=== PATIENT | male | born 1950 | race Caucasian/White ===

== ENCOUNTER 2017-01-22 09:46 | Outpatient (CLI) | payer MEDICARE, OTHER ==
[~2017-01-22] VITALS: Ht 182.9 cm; Wt 100.0 kg
--- NOTE | ~2017-01-22 | HEMODYNAMI ---
PATIENT:MARY MENDES MEDICAL RECORD: [id number] : 48 LOCATION:[facility] ADMISSION DATE: 01/22/17 Generatedon:01/22/201712:42 Patient name: MARY MENDES Patient #: [id number] N: [id number] : 1950 Date of study: 01/22/2017 Page: Of Hemodynamic Procedure Report Patient Data Patient Demographics Procedure consent was obtained First Name: MARY Gender: Male Last Name: CINTHYA : 1950 [facility] Initial: R Age: 66 year(s) Patient #: [id number] Race: SSN: [id number] Additional ID: [id number] Contact details Address: [address] [place] [address] State: [place] City: [facility] Zip code: [address] Past Medical History History of disease Date Diagnosis Comments CAD Allergies Allergen Reaction Date Comments Reported Other allergy 01/22/2017 [facility] Admission Admission Data Admission Date: 01/22/2017 Admission Time: 9:46 Arrival Date: 01/22/2017 Arrival Time: 0:00 Admit Source: Other Insurance Payor: Private health insurance, Medicare Height (in.): 72 BSA: 2.26 (m2) Height (cm.): 182.88 BMI: 31.19 (kg/m2) Weight (lbs.): 230 Weight (kg.): 104.33 Lab Results Lab Result Date: 01/22/2017 Lab Result Time: 0:00 Biochemistry Name Units Result Min Max BUN mg/dl 13 --(--*-)-- 7 18 Creatinine mg/dl 1.1 --(--*-)-- 0.6 1.3 CBC Name Units Result Min Max Hemoglobin g/dl 15.9 --(--*-)-- 13.5 17.5 Procedure Procedure Types Cath Procedure Diagnostic Procedure LHC LH w/Coronaries PCI Procedure Coronary Stent Initial PTCA Additional Miscellaneous Procedures Moderate Sedation up to 30 minutes Procedure Description Procedure Date Procedure Date: 01/22/2017 Procedure Start Time: 12:16 Procedure End Time: 12:40 Procedure Staff Name Function Carroll Thomas MD Performing Physician Tosin Velazquez RT Scrub Lynette Carrillo RN Nurse Janine Prieto RT Monitor Procedure Data Cath Procedure Fluoroscopy Diagnostic fluoroscopy Total fluoroscopy Time: 7.8 time: 7.8 min min Diagnostic fluoroscopy Total fluoroscopy dose: dose: 1449 mGy 1449 mGy Contrast Material Contrast Material Type Amount (ml) Isovue 300 144 Entry Location Entry Primary Successful Side Size Upsize Upsize Entry Closure Succes sful Closure Location (Fr) 1 (Fr) 2 (Fr) Remarks Device Remarks Femoral Right 5 Fr 6 Fr Exoseal artery Short Estimated blood loss: 5 ml Diagnostic catheters Device Type Used For End Catheter Placement Cordis 5Fr Pigtail LV Angiography Catheter (MP) Cordis 5Fr JL 4.0 Left Coronary Catheter (MP) Angiography Cordis 5Fr 3DRC Catheter Right Coronary (MP) Angiography Procedure Complications No complications Procedure Medications Medication Administration Route Dosage Oxygen NC 2 l/min Lidocaine 2% added to field 20 Heparin Flush Bag added to field 2 bags (1000units/500ml NS) 0.9% NaCl I.V. 100 ml/hr Versed I.V. 1 mg Fentanyl I.V. 50 mcg Versed I.V. 1 mg Fentanyl I.V. 50 mcg Heparin Bolus I.V. 4000 units Fentanyl I.V. 50 mcg Fentanyl I.V. 50 mcg Hemodynamics Rest BSA: 2.26 (m2) HGB: 15.9 (g/dl) O2 Consumption: Estimated: 264.44 (ml/min) O2 Co nsumption indexed: Estimated:117.01 (ml/min/m) Heart Rate: 72 (bpm) Pressure Samples Time Site Value (mmHg) Purpose Heart Use Rate(bpm) 12:18 LV 111/27,47 Snapshot 73 Snapshots Pre Cath Intra NCS Post Cath Vital Signs Time Heart Resp SPO2 NIBP (mmHg) Rhythm Pain Sedation Rate (ipm) (%) Status Level (bpm) 12:01:00 69 14 94 138/88(106) NSR 0 (11) 10(A) , No pain 12:05:12 69 15 96 131/84(105) NSR 0 (11) 10(A) , No pain 12:09:24 70 15 96 134/75(102) NSR 0 (11) 10(A) , No pain 12:13:38 69 16 97 129/78(103) NSR 0 (11) 10(A) , No pain 12:17:48 71 16 96 129/77(104) NSR 0 (11) 9(A) , No pain 12:21:58 69 17 95 132/79(109) NSR 0 (11) 9(A) , No pain 12:26:12 73 16 95 129/74(106) NSR 0 (11) 9(A) , No pain 12:30:24 76 16 96 124/78(102) NSR 0 (11) 9(A) , No pain 12:34:30 78 16 96 130/88(107) NSR 0 (11) 9(A) , No pain 12:38:40 76 17 96 140/80(115) NSR 0 (11) 10(A) , No pain Medications Time Medication Route Dose Verified Delivered Reason Notes Effectiveness by by 12:02:46 Oxygen NC 2 Carroll Buffie used for l/min Martha Carrillo RN procedure 12:15:52 Lidocaine 2% added 20ml Carroll Carroll for local to vial Martha Thomas MD anesthetic field 12:15:58 Heparin Flush added 2 Carroll Carroll used for Bag to bags Martha Thomas MD procedure (1000units/500ml field NS) 12:16:09 0.9% NaCl I.V. 100 Carroll Buffie Per physician ml/hr Martha Carrillo RN 12:16:16 Versed I.V. 1 mg Carroll Buffie for sedation Martha Carrillo RN 12:16:22 Fentanyl I.V. 50 Carroll Buffie for sedation mcg Martha Carrillo RN 12:19:49 Versed I.V. 1 mg Carroll Buffie for sedation Martha Carrillo RN 12:19:53 Fentanyl I.V. 50 Carroll Buffie for sedation mcg Martha Carrillo RN 12:23:22 Heparin Bolus I.V. 4000 Carroll Buffie for verifi ed units Martha Carrillo RN anticoagulation with dr thomas 12:25:29 Fentanyl I.V. 50 Carroll Buffie for sedation mcg Martha Carrillo RN 12:30:15 Fentanyl I.V. 50 Carroll Buffie for sedation mcg Tauth MD Carrillo wholesaler Log Time Note 11:46:38 Arrival Date: 01/22/2017 12:00:00 AM 11:46:39 Admit Source: Other 11:46:46 Patient Height : 182.88 cm 11:46:58 Patient Weight : 104.33 kg 11:46:58 Insurance Payor : Private health insurance, Medicare 11:47:56 ACC Patient presents with Symptoms unlikely to be ischemic CCS Anginal Class 2--Slight limitation of ordinary activity. 11:48:00 Diagnostic Cath status Elective 11:48:02 Janine Prieto RT(R) sent for patient. Start room use. 11:48:03 Time tracking: Regular hours 11:48:09 Plan of Care:Hemodynamics will remain stable., Cardiac rhythm will remain stable., Comfort level will be maintained., Respiratory function will remain adequate., Patient/ family verbilizes understanding of procedure., Procedure tolerated without complication., Recovers from procedure without complications.. 11:48:18 Patient received from Pre/Post Procedure Room to CCL 2 Alert and oriented. Tansferred to table in Supine position. 11:48:20 Warm blankets applied, and luca hugger turned on for patient comfort. 11:48:22 Correct patient and procedure confirmed by team. 11:48:23 Signed procedure consent form obtained from patient. 11:48:37 H&P Date Dictated: 01/20/2017 Within 30 days and on chart., H&P Addendum completed by physician on day of procedure. (MUST COMPLETE FOR ALL OUTPATIENTS). 11:48:40 Pre-procedure instructions explained to patient. 11:48:44 Family in waiting room. 11:48:48 Patient NPO since Midnight. 11:49:13 Patient allergic to Other allergySimvastatin 11:49:16 Is the patient allergic to Iodine/contrast media? No. 11:49:25 Is patient on blood thinner?Yes 11:49:29 ACC The patient was administered the following blood thiners within the last 24 hours: ACCPlavix 11:50:09 Snore? Yes 11:50:13 Patient diabetic? No. 11:50:27 Patient pain scale 0/10 ?. 11:50:36 IV patent on arrival in left hand with 0.9% NaCl at O. 11:51:13 Right Radial & Right Groin area was prepped with chlora-prep and draped in sterile fashion 11:51:15 Alarms reviewed by Ayesha Wynn 11:51:16 Physician paged 11:59:56 ECG and BP/O2 sat monitors applied to patient. 11:59:57 Baseline sample Acquired. 11:59:57 Vital chart was started 12:00:01 Rhythm: sinus rhythm 12:00:02 Full Disclosure recording started 12:00:05 Pre-op teaching completed and patient verbalized understanding. 12:00:10 Was the patient premedicated? No 12:00:19 Previous problem with sedation/anesthesia? No ? 12:00:22 Sleep apnea? No 12:00:25 Deviated septum? No 12:00:26 Opens mouth fully? Yes 12:00:27 Sticks out tongue? Yes 12:00:29 Airway obstruction? No ? 12:00:33 Dentures? No ? 12:00:36 Pre procedure: right dorsailis pedis pulse 1+ Palpable, but thready & weak; easily obliterated 12:00:39 Patient pain scale 0/10 ?. 12:02:46 Oxygen 2 l/min NC was administered by Lynette Carrillo RN; used for procedure; 12:04:23 Lab Result : Creatinine 1.1 mg/dl 12:04:23 Lab Result : BUN 13 mg/dl 12:04:23 Lab Result : Hemoglobin 15.9 g/dl 12:04:29 Lab results completed and on chart. 12:06:16 Use device set Femoral Dx 12:06:17 Acist Syringe opened to sterile field. 12:06:18 Bag Decanter opened to sterile field. 12:06:18 Medline Cath Pack opened to sterile field. 12:06:18 Terumo 5Fr Flushing Sheath opened to sterile field. 12:06:19 St Turner 260cm J .035 wire opened to sterile field. 12:06:21 Acist Hand Control opened to sterile field. 12:06:21 Acist Manifold opened to sterile field. 12:06:22 Diagnostic Infinity 5Fr Multipack catheter opened to sterile field. 12:06:22 Tegaderm 4 x 4 opened to sterile field. 12:15:35 Physician arrived 12:15:36 --------ALL STOP TIME OUT------ 12:15:36 Final Timeout: patient, procedure, and site verified with staff and physician. All members of the team are in agreement. 12:15:38 Right groin site verified by team. 12:15:40 Physical assessment completed. ASA score P 2 - A patient with mild systemic disease as per Carroll Thomas MD. 12:15:44 Sedation plan: IV Moderate Sedation Versed, Fentanyl 12:15:52 Lidocaine 2% 20ml vial added to field was administered by Carroll Thomas MD; for local anesthetic; 12:15:58 Heparin Flush Bag (1000units/500ml NS) 2 bags added to field was administered by Carroll Thomas MD; used for procedure; 12:16:09 0.9% NaCl 100 ml/hr I.V. was administered by Lynette Carrillo RN; Per physician; 12:16:16 Versed 1 mg I.V. was administered by Lynette Carrillo RN; for sedation; 12:16:22 Fentanyl 50 mcg I.V. was administered by Lynette Carrillo RN; for sedation; 12:16:49 Procedure started. 12:16:51 Local anesthetic to right femoral artery with Lidocaine 2% by Carroll Thomas MD.INITIAL ACCESS ONLY 12:16:58 A 5 Fr sheath was inserted into the Right Femoral artery 12:17:01 Zero performed for pressure channel P1 12:17:17 A Cordis 5Fr Pigtail Catheter (MP) was advanced over the wire and used for LV Angiography. 12:18:26 LV hemodynamics recorded. 12:18:27 LV gram done using EMERY 12:18:30 Injector settings: Ml/sec: 5, Volume: 15, 12:18:36 EF : 50 % 12:18:41 Catheter removed. 12:18:45 A Cordis 5Fr JL 4.0 Catheter (MP) was advanced over the wire and used for Left Coronary Angiography. 12:19:31 LCA angiography performed. 12:19:34 Injector settings: Ml/sec: 3, Volume: 6, 12:19:49 Versed 1 mg I.V. was administered by Lynette Carrillo RN; for sedation; 12:19:53 Fentanyl 50 mcg I.V. was administered by Lynette Carrillo RN; for sedation; 12:19:57 Ramirez Whisper J 300cm 0.014 guide wire opened to sterile field. 12:19:57 Merit BasixCompak Inflation Kit opened to sterile field. 12:20:00 Terumo 6Fr Flushing Sheath opened to sterile field. 12:20:10 Catheter removed. 12:20:16 A Cordis 5Fr 3DRC Catheter (MP) was advanced over the wire and used for Right Coronary Angiography. 12:21:53 RCA angiography performed. 12::56 Injector settings: Ml/sec: 3, Volume: 6, 12:22:02 Catheter removed. 12:22:09 Medtronic Launcher 6Fr HS I guide catheter opened to sterile field. 12:22:13 Proceeding to intervention. 12:: Sheath upsized to a 6 Fr Short. 12::35 6 Fr hs 1 guide catheter was inserted over the wire 12:: whisper wire advanced. 12:: Heparin Bolus 4000 units I.V. was administered by Lynette Carrillo RN; for anticoagulation; verified with dr thomas 12:25: Wire advanced across lesion. 12:25:26 Inflation number: 1 A [place] Sci Teller 3.0 X 20 balloon was prepped and advanced across the Mid RCA, then inflated to 17 SHEILA for 0:10 (min:sec). 12:25:29 Fentanyl 50 mcg I.V. was administered by Lynette Carrillo RN; for sedation; 12:: Inflation number: 2 The [place] Sci Teller 3.0 X 20 balloon was reinflated across the Mid RCA, to 17 SHEILA for 0:10 (min:sec). 12::49 Balloon removed over the wire. 12:: Inflation number: 3 The [place] Sci Teller 3.0 X 20 balloon was reinflated across the Mid RCA, to 21 SHEILA for 0:10 (min:sec). 12:27:31 choice pt wire advanced 12:28:36 Balloon removed over the wire. 12:30:15 Fentanyl 50 mcg I.V. was administered by Lynette Carrillo RN; for sedation; 12::49 Inflation number: 1 A Euphora 2.0 x 12 Balloon was prepped and advanced across the R PDA, then inflated to 17 SHEILA for 0:10 (min:sec). 12:31:33 Inflation number: 2 The Euphora 2.0 x 12 Balloon was reinflated across the R PDA, to 17 SHEILA for 0:10 (min:sec). 12:31:56 Inflation number: 3 The Euphora 2.0 x 12 Balloon was reinflated across the R PDA, to 21 SHEILA for 0:10 (min:sec). 12:34:41 choice pt wire removed from PDA 12:34:46 Inflation Number: 4 A Medtronic Resolute 3.0 X 9 stent was prepped and advanced across the Mid RCA. The stent was deployed at 21 SHEILA for 0:10 (min:sec). 12:37:23 Stent catheter was removed intact over wire. 12:37:23 Wire removed. 12:37:24 Guide catheter removed. 12:38:14 Cordis 6Fr Exoseal opened to sterile field. 12:38:22 Sheath removed intact; hemostasis achieved with Exoseal to the Right Femoral artery. 12:38:24 Procedure ended.(Physican Out) 12:38:59 Fluoroscopy time 07.80 minutes. 12:39:10 Flurop Dose total: 1449 12:39:10 Fluoroscopy dose: 1449 mGy 12:39:15 Contrast amount:Isovue 300 144ml. 12:39:16 Sharps counted by scrub and verified by R.N. 12:39:17 Insertion/operative site no bleeding no hematoma. 12:39:20 Post-op/insertion site Right Femoral artery dressed using a 4 x 4 and Tegaderm. 12:39:23 Post right femoral artery:stable 12:39:24 Post Procedure Pulses reassessed and unchanged 12:39:27 Post procedure rhythm: unchanged. 12:39:29 Estimated blood loss: 5 ml 12:39:31 Post procedure instruction explained to patient.Patient verbalizes understanding. 12:39:31 Patient needs reinforcement of post procedure teaching. 12:39:48 Procedure type changed to Cath procedure, Diagnostic procedure, LHC, LHC w/Coronaries, PCI procedure, Coronary Stent Initial, PTCA Additional, Miscellaneous Procedures, Moderate Sedation up to 30 minutes 12:39:50 Procedure and supply charges have been captured, reviewed, submitted and are correct. 12:39:56 Procedure Complication : No complications 12:39:57 Vital chart was stopped 12:39:58 See physician's report for complete and final results. 12:40:01 Report given to Pre/Post Procedure Room. 12:40:03 Patient transfered to Pre/Post Procedure Room with Stretcher. 12:40:05 Procedure ended. 12:40:05 Full Disclosure recording stopped 12:40:11 ACC-PCI Only Patient was given prescriptions, or instructed by Carroll Thomas MD to start/continue the following medications upon discharge: Plavix 12:40:13 End room use (Document Last) Intervention Summary Intervention Notes Time ActionType Lesion and Equipment Action# Pressure Duration Attributes Used 12:25:26 Inflate Mid RCA [place] 1 17 00:10 balloon Sci Teller 3.0 X 20 balloon 12:25:41 Reinflate Mid RCA [place] 2 17 00:10 balloon Sci Teller 3.0 X 20 balloon 12:26:26 Reinflate Mid RCA [place] 3 21 00:10 balloon Sci Teller 3.0 X 20 balloon 12:30:49 Inflate R PDA Euphora 1 17 00:10 balloon 2.0 x 12 Balloon 12:31:33 Reinflate R PDA Euphora 2 17 00:10 balloon 2.0 x 12 Balloon 12:31:56 Reinflate R PDA Euphora 3 21 00:10 balloon 2.0 x 12 Ball[address] 12:34:46 Place stent Mid RCA Medtronic 4 21 00:10 Resolute 3.0 X 9 stent Device Usage Item Name Manufacture Quantity Catalog Number Hospital Part Current Mini mal Lot# / Charge Number Stock Stock Serial# Code Acist Acist 1 80026 855177 955993 005157 20 Syringe Medical Systems Inc Bag Microtek 1 2002S 759716 46250 717582 5 Forrst [employer]. Medline Cardinal 1 [id number] 095985 43097 207102 5 Cath Pack Health Terumo 5Fr Terumo 1 [id number] 747816 026172 663626 [address] [facility] St Turner 1 819459 536465 699846 048704 30 260cm J .035 wire Acist Hand Acist 1 63120 492425 162261 398477 5 Control Medical Systems Inc Acist Acist 1 15047 979570 661346 857504 5 Manifold Medical Systems Inc Diagnostic Cardinal 1 [id number] 927941 49785 970944 30 Infinity Health 5Fr Multipack catheter Tegaderm 4 3M 1 1626W 821955 159654 517520 5 x 4 Cordis 5Fr Cardinal 1 196885 5 Pigtail Health Catheter (MP) Cordis 5Fr Cardinal 1 050869 5 JL 4.0 Health Catheter (MP) Ramirez Ramirez 1 [id number] 795708 632629 777505 5 Whisper J Vascular 300cm 0.014 guide wire [facility] 1 AL5469 471695 166177 735598 15 BasixCompak Medical Inflation Kit Terumo 6Fr Terumo 1 [id number] 227281 297339 244372 40 Flushing Sheath Cordis 5Fr Cardinal 1 030565 5 3DRC Health Catheter (MP) Medtronic Medtronic 1 [id number] 698245 28215 730405 1 Launcher 6Fr HS I guide catheter [place] Sci [place]on 1 [id number] 067453 127883 719546 1 [id number] [employer] 3.0 X 20 balloon Euphora 2.0 Medtronic 1 [id number] 809350 219763 622664 5 [id number] x 12 Balloon Medtronic Medtronic 1 [id number] 204563 277306 5 [id number] Resolute 3.0 X 9 stent Cordis 6Fr Cardinal 1 EX600 580266 858159 731626 10 [facility] Signature Audit [place] Stage Time Signature Unsigned Intra-Procedure 01/22/2017 Janine Prieto 12:42:15 PM RT(R) Signatures Monitor : Janine Prieto RT Signature : Date : Time : [address] [place] [address]
[~2017-01-22 09:46] MED LIST: ASPIRIN 81 MG E81 MG PO; ASPIRIN325 MG PO; CELEXA20 MG PO; CELEXA40 MG PO; COREG25 MG PO; FLOMAX0.4 MG PO; MULTI-DAY VITAM1 TAB PO; PLAVIX75 MG PO; PRAVACHOL20 MG PO; PRINIVIL20 MG PO; VITAMIN B-121000 MCG PO; VITAMIN D31000 UNIT PO
[2017-01-22] MEDS ORDERED: ZESTRIL40 MG PO (10:06)
[2017-01-22 10:11] VITALS: BP 141/84; BMI 29.9
[2017-01-22 10:19] VITALS: BP 141/84; Ht 182.9 cm; Wt 100.0 kg
[2017-01-22 10:24] LABS: BASOPHILS 0.2 % (0-2); EOSINOPHILS 3.1 % (0-7); HEMATOCRIT 46.3 % (42.0-54.0); HEMOGLOBIN 15.9 g/dL (13.5-17.5); IMMATURE GRANULOCYTES 0.2 % (0-5); LYMPHOCYTES 31.2 % (15-50); MCH 30.5 pg (26.0-34.0); MCHC 34.3 g/dL (31.0-37.0); MCV 88.9 fL (80.0-100.0); MEAN PLATELET VOLUME 10.7 fL (7.4-10.4); MONOCYTES 8.5 % (2-11); NEUTROPHILS 56.8 % (40-80); PLATELET COUNT 140 10x3/uL (130-400); RBC 5.21 10x6/uL (4.20-6.10); RDW 12.4 % (11.5-14.5); WBC 6.1 10x3/uL (4.8-10.8)
[2017-01-22 10:33] LABS: ANION GAP 13.7 mmol/L (8-16); CALCIUM 9.2 mg/dL (8.5-10.1); CARBON DIOXIDE 24.4 mmol/L (21.0-32.0); CREATININE - SERUM 1.1 mg/dL (0.6-1.3); POTASSIUM - SERUM 4.1 mmol/L (3.5-5.1)
[2017-01-22] MEDS ORDERED: PLAVIX75 MG PO (12:48)
--- NOTE | 2017-01-23 08:49 | OP ---
PATIENT NAME: MARY MENDES MEDICAL RECORD: [id number] :48 LOCATION:D.CAT ADMISSION DATE: SURGEON: HOSSEIN PEREZ MD DATE OF OPERATION: 01/22/2017 PROCEDURES: 1. PTCA stent of the RCA. 2. PTCA of the RCA and PDA. 3. Left heart catheterization. 4. Selective coronary angiography. 5. Left ventriculogram. INDICATION: Angina and coronary artery disease. PROCEDURE IN DETAIL: After informed consent was obtained and after detailed explanation of risks, benefits as well as alternative therapies, the patient elected to proceed with angiogram and angioplasty. The right femoral area was prepped and draped in normal sterile fashion. The right femoral artery was cannulated via modified Seldinger technique with placement of 6-Syrian sheath. All catheters exchanged through this sheath. FINDINGS: The left ventriculogram was performed in the standard 30-degree EMERY view reveals preserved cardiac wall motion, ejection fraction of 55%. SELECTIVE CORONARY ANGIOGRAPHY: 1. Left main showed no significant angiographic disease. 2. Left anterior descending has previously placed stents that have xpwg-[id number]-fumldemi irregularities, but no discrete flow-limiting stenosis. 3. The left circumflex has mild to moderate irregularities, but no flow-limiting stenosis. 4. The right coronary has previously placed stents. There is 80% to 90% in-stent restenosis in the mid vessel. PTCA STENT OF THE RIGHT CORONARY: The stent used was a 3.0 x 9 mm Resolute taken to 21 atmospheres. This caused plaque shift into the PDA. The PDA was addressed with a 2.0 balloon. Result was 0% residual throughout. OVERALL IMPRESSION: Successful percutaneous transluminal coronary angioplasty stent of the right coronary artery going from 80% to 90% in-stent restenosis to 0% residual stenosis. TRANSINT:[id number] Voice Confirmation ID: [id number] DOCUMENT ID: [id number] HOSSEIN PEREZ MD at 0849 CC: [id number] DICTATION DATE: 01/22/17 1240 TABLE CUT OFF SAW OPERATOR: 01/22/17 2252 DEP CLI 01/22/17 [place] [address]
== END 2017-01-22 17:15 | disposition home or self-care (01) ==
LOC: D.CATH 09:46
PROVIDERS: Internal Medicine Interventional Cardiology
DX: I25.119 Atherosclerotic heart disease of native coronary artery with unspecified angina pectoris (principal); T82.855A Stenosis of coronary artery stent, initial encounter; Z01.812 Encounter for preprocedural laboratory examination

== ENCOUNTER 2018-08-05 14:23 | Emergency (ER) | payer MEDICARE, OTHER ==
[~2018-08-05] VITALS: Ht 182.9 cm; Wt 99.8 kg
[~2018-08-05 14:23] MED LIST changes: +ZESTRIL40 MG PO
[2018-08-05 14:29] VITALS: Ht 182.9 cm; Wt 99.8 kg
[2018-08-05 16:41] LABS: BASOPHILS 0.1 % (0-2); HEMATOCRIT 45.9 % (42.0-54.0); IMMATURE GRANULOCYTES 0.1 % (0-5); LYMPHOCYTES 21.2 % (15-50); MCH 30.7 pg (26.0-34.0); MCHC 34.9 g/dL (31.0-37.0); MCV 88.1 fL (80.0-100.0); MEAN PLATELET VOLUME 10.9 fL (7.4-10.4); MONOCYTES 10.4 % (2-11); NEUTROPHILS 67.2 % (40-80); PLATELET COUNT 145 10x3/uL (130-400); RBC 5.21 10x6/uL (4.20-6.10); RDW 12.4 % (11.5-14.5); WBC 7.8 10x3/uL (4.8-10.8)
[2018-08-05 16:55] LABS: ALBUMIN 3.5 g/dL (3.4-5.0); ALKALINE PHOSPHATASE 69 U/L (46-116); ALT (SGPT) 21 U/L (10-68); CALC OSMOLALITY 274 mosm/kg (275-300); CALCIUM 8.8 mg/dL (8.5-10.1); CARBON DIOXIDE 25.7 mmol/L (21.0-32.0); CHLORIDE - SERUM 101 mmol/L (98-107); GLUCOSE 105 mg/dL (74-106); PROTEIN - SERUM 7.3 g/dL (6.4-8.2); SODIUM 138 mmol/L (136-145); UREA NITROGEN 9 mg/dL (7-18); eGFR NON AFRICAN AMERICAN 79 mL/min (90-120)
[2018-08-05 16:57] LABS: TROPONIN-I < 0.017 ng/mL (0.000-0.060)
[2018-08-05 17:48] LABS: APPEARANCE CLEAR (CLEAR); BILIRUBIN NEGATIVE (NEGATIVE); COLOR YELLOW (YELLOW); GLUCOSE NEGATIVE (NEGATIVE); KETONE NEGATIVE (NEGATIVE); NITRITE NEGATIVE (NEGATIVE); PH 6.5 (5.0-6.0); PROTEIN NEGATIVE (NEGATIVE); UROBILINOGEN NORMAL (NORMAL)
[2018-08-05 20:51] VITALS: BP 124/70
[2018-08-05] MEDS ORDERED: TESSALON PERLE100 MG PO (21:23)
[2018-08-05] MEDS ORDERED: TAMIFLU75 MG PO (21:23)
[2018-08-05] MEDS ORDERED: HYDROCODON-ACE1 EAC7 PO (21:23)
[2018-08-05] MEDS ORDERED: ZPAK PO (21:23)
== END 2018-08-05 21:40 | disposition home or self-care (01) ==
LOC: D.ER 14:23
PROVIDERS: Family Medicine
DX: J11.1 Influenza due to unidentified influenza virus with other respiratory manifestations (principal); R05 Cough; R09.89 Other specified symptoms and signs involving the circulatory and respiratory systems; I10 Essential (primary) hypertension; I25.10 Atherosclerotic heart disease of native coronary artery without angina pectoris

== ENCOUNTER 2018-12-08 08:39 | Emergency (ER) | payer MEDICARE, OTHER ==
[~2018-12-08] VITALS: Ht 182.9 cm; Wt 100.0 kg
[~2018-12-08 08:39] MED LIST changes: +BAYER CHEWABLE81 MG PO; +HYDROCODON-ACE1 EAC7 PO; +TAMIFLU75 MG PO; +TESSALON PERLE100 MG PO; +ZPAK PO
[2018-12-08 08:42] VITALS: BP 133/77; Ht 182.9 cm; Wt 100.0 kg
[2018-12-08 09:40] LABS: BASOPHILS 0.2 % (0-2); EOSINOPHILS 5.5 % (0-7); HEMATOCRIT 44.9 % (42.0-54.0); HEMOGLOBIN 15.5 g/dL (13.5-17.5); LYMPHOCYTES 38.3 % (15-50); MCH 30.9 pg (26.0-34.0); MCHC 34.5 g/dL (31.0-37.0); MCV 89.4 fL (80.0-100.0); MONOCYTES 11.3 % (2-11); NEUTROPHILS 44.7 % (40-80); PLATELET COUNT 167 10x3/uL (130-400); RBC 5.02 10x6/uL (4.20-6.10); RDW 12.4 % (11.5-14.5); WBC 5.7 10x3/uL (4.8-10.8)
[2018-12-08] MEDS ORDERED: AUGMENTIN 875-11 TAB PO (09:48)
[2018-12-08] MEDS ORDERED: FLUTICASONE PRO16 GM NASAL (09:48)
== END 2018-12-08 10:07 | disposition home or self-care (01) ==
LOC: D.ER 08:39
PROVIDERS: Family Medicine
DX: J01.90 Acute sinusitis, unspecified (principal)

== ENCOUNTER 2019-04-12 14:35 | Emergency (ER) | payer MEDICARE, OTHER ==
[~2019-04-12] VITALS: Ht 182.9 cm; Wt 95.5 kg
[~2019-04-12 14:35] MED LIST changes: +AUGMENTIN 875-11 TAB PO; +FLUTICASONE PRO16 GM NASAL
[2019-04-12 14:45] VITALS: Ht 182.9 cm; Wt 95.5 kg
[2019-04-12 15:03] LABS: BASOPHILS 0.1 % (0-2); HEMATOCRIT 44.9 % (42.0-54.0); HEMOGLOBIN 15.6 g/dL (13.5-17.5); IMMATURE GRANULOCYTES 0.2 % (0-5); LYMPHOCYTES 23.5 % (15-50); MCH 30.8 pg (26.0-34.0); MCHC 34.7 g/dL (31.0-37.0); MCV 88.6 fL (80.0-100.0); MEAN PLATELET VOLUME 10.4 fL (7.4-10.4); MONOCYTES 12.6 % (2-11); NEUTROPHILS 59.6 % (40-80); PLATELET COUNT 138 10x3/uL (130-400); RBC 5.07 10x6/uL (4.20-6.10); RDW 12.6 % (11.5-14.5); WBC 9.1 10x3/uL (4.8-10.8)
[2019-04-12 15:43] LABS: ALBUMIN 3.8 g/dL (3.4-5.0); ALKALINE PHOSPHATASE 81 U/L (46-116); ALT (SGPT) 20 U/L (10-68); CALC OSMOLALITY 250 mosm/kg (275-300); CALCIUM 9.1 mg/dL (8.5-10.1); CARBON DIOXIDE 26.2 mmol/L (21.0-32.0); CHLORIDE - SERUM 99 mmol/L (98-107); CREATININE - SERUM 0.9 mg/dL (0.6-1.3); GLUCOSE 81 mg/dL (74-106); POTASSIUM - SERUM 4.5 mmol/L (3.5-5.1); SODIUM 126 mmol/L (136-145); UREA NITROGEN 11 mg/dL (7-18); eGFR NON AFRICAN AMERICAN 89 mL/min (90-120)
[2019-04-12 16:40] LABS: LIPASE 402 U/L (73-393); MAGNESIUM - SERUM 1.9 mg/dL (1.8-2.4)
[2019-04-12 16:46] LABS: TROPONIN-I < 0.017 ng/mL (0.000-0.060)
[2019-04-12] MEDS ORDERED: AZASITE2.5 ML EACH EYE (17:58)
[2019-04-12] MEDS ORDERED: ZITHROMAX500 MG PO (18:31)
[2019-04-12 18:39] VITALS: BP 160/80
== END 2019-04-12 18:39 | disposition home or self-care (01) ==
LOC: D.ER 14:35
PROVIDERS: Family Medicine
DX: J20.9 Acute bronchitis, unspecified (principal); I25.10 Atherosclerotic heart disease of native coronary artery without angina pectoris

== ENCOUNTER → 2019-05-25 09:45 | Outpatient (CLI) | payer MEDICARE, OTHER ==
[2019-04-12 14:45] VITALS: BMI 28.5
[~2019-05-25 09:45] MED LIST changes: +AZASITE2.5 ML EACH EYE; +ZITHROMAX500 MG PO
--- NOTE | 2019-05-28 13:28 | EC ---
PATIENT:MARY MENDES DATE OF SERVICE: 05/25/19 SEX: M MEDICAL RECORD: [id number] DATE OF : [birth year] LOCATION:[facility] AGE OF PATIENT: 68 ADMISSION DATE: 05/25/19 REFERRING PHYSICIAN: INTERPRETING PHYSICIAN: HOSSEIN THOMAS MD ECHOCARDIOGRAM REPORT ECHO CHARGES 4 ECHO COMPLETE Date: 05/25/19 CLINICAL DIAGNOSIS: HTN H/O CAD ECHOCARDIOGRAPHIC MEASUREMENTS (adult normal given) AC root (d.<3.7cm) 3.5 cm LV Septum d (<1.2 cm> 1.1 cm Valve Excursion 1.3 cm LV Septum (systole) 1.4 cm Left Atria (s.<4.0cm> 3.3 cm LVPW d(<1.2cm) 1.2 cm RV (d.<2.3cm) 3.0 cm LVPW (sytole) 1.5 cm LV diastole(<5.6CM) 5.4 cm MV E-F(>70mm/sec) cm LV systole 4.0 cm LVOT Diameter 1.9 cm MV exc.(>10mm) cm Est.ejection fraction (50-75%) % DOPPLER: LVIT cm/sec A 50.0 cm/sec E 93.0 cm/sec LA cm/sec RVSP 35.0 mmHg LVOT 107 cm/sec AOP1/2T m/s Asc. Ao 178 cm/sec RVOT 56.0 cm/sec RA cm/sec PA 100 cm/sec AV Gradient Peak 13.0 mmHg AV Mean 8.0 mmHg AV Area 1.8 cm MV Gradient Peak 4.5 mmHg MV Mean 1.7 mmHg MV Area cm COMMENTS: OP - HC Resp Therapist: 1 NORMA HUMESTON Branch Sales And Service Representative: 1 Dr. Thomas TAPE# PACS Pericardial Effusion N DATE OF SERVICE: FINDINGS: 1. Left ventricular chamber size is mildly dilated. Left ventricular systolic function is moderately reduced at 30% to 35%. 2. Left atrium is within normal limits at 3.3 cm. Right atrium and right ventricular chamber sizes are mildly dilated. 3. Valvular structures have normal structure and motion. 4. Doppler interrogation reveals trace aortic insufficiency, mild mitral regurgitation, trace tricuspid regurgitation, no other valvular insufficiency or ECHOCARDIOGRAM REPORT [id number] MARY MENDES stenosis. Pulmonary systolic pressure is estimated at 35 mmHg. 5. No evidence of pericardial effusion or left ventricular thrombus. TRANSINT:[id number] Voice Confirmation ID: [id number] DOCUMENT ID: [id number] HOSSEIN THOMAS MD at 1328 CC: [id number] DICTATION DATE: 05/26/19 1126 RECEIVING WORKER: 05/26/19 1217 DEP CLI 05/25/19 [id number] [place] [address]
== END | disposition home or self-care (01) ==
LOC: D.HCCECHO 09:45
PROVIDERS: ATTEND Internal Medicine Interventional Cardiology
DX: I25.10 Atherosclerotic heart disease of native coronary artery without angina pectoris (principal)